=== PATIENT | male | born 1955 | race Caucasian/White ===

== ENCOUNTER 2016-07-14 20:57 | Emergency (ER) | payer MEDICAID, MEDICARE, OTHER ==
[2016-07-15] MEDS ORDERED: PRILOCAINE TP ONE (01:39)
[2016-07-15] MEDS ORDERED: LIDOCAINE TP ONE (01:39)
--- NOTE | 2016-07-15 08:10 | RAD ---
HIP - LEFT 2 VW + AP PELVIS HISTORY: Fall with left hip pain. COMPARISONS: None. FINDINGS: An AP view of the pelvis was performed with AP and frog-leg lateral views of the left hip demonstrating grossly intact osseous structures. No definitive fracture is seen. The hip joint spaces are symmetric and are well-maintained. The sacrum and sacroiliac joints are unremarkable. No focal soft tissue abnormalities are seen. IMPRESSION: 1. Negative views of the pelvis and left hip.
--- NOTE | 2016-07-15 08:11 | RAD ---
History: Fall with right-sided chest pain. Comparison: None. Technique: 2 views Findings: The soft tissue and bony structures are unremarkable. The heart size is appropriate. No infiltrate, effusion or pneumothorax is observed. The hilar and mediastinal structures are normal. Impression: 1. No active intra-thoracic disease.
== END 2016-07-15 02:10 | disposition home or self-care (01) ==
LOC: ED 20:57
DX: S20.211A Contusion of right front wall of thorax, initial encounter (principal); M25.552 Pain in left hip; W19.XXXA Unspecified fall, initial encounter; Y93.01 Activity, walking, marching and hiking; Y92.9 Unspecified place or not applicable
CPT/HCPCS: 71020; 73502; 99283 ×2; A9270